=== PATIENT | male | born 1965 | race Caucasian/White ===

== ENCOUNTER 2020-07-02 15:36 | Emergency (ER) | payer BC, SELFPAY ==
[2020-07-02 15:44] VITALS: BP 140/102; PULSE 106; RESP 14; TEMP 36.8; O2SAT 97; BMI 36.2
--- NOTE | 2020-07-02 15:56 | XRR_ITS ---
PROCEDURE INFORMATION: Exam: XR Chest, 1 View Exam date and time: 07/02/2020 3:58 PM Age: 54 years old Clinical indication: Other: Rapid heart rate; Additional info: Dyspnea/svt TECHNIQUE: Imaging protocol: XR of the chest Views: 1 view. COMPARISON: No relevant prior studies available. FINDINGS: Lungs: Unremarkable. No consolidation. Pleural spaces: Unremarkable. No pleural effusion. No pneumothorax. Heart/Mediastinum: Unremarkable. No cardiomegaly. Bones/joints: Unremarkable. XR/XR chest 1V portable [id number] IMPRESSION: No acute findings.
--- NOTE | 2020-07-02 15:58 | PC.NURSE ---
PT PRESENTS TO ED BY EMS FOR RAPID HEART RATE. PT DROVE HIMSELF TO EMS STATION, HAD CHEST PAIN. EMS DID EKG, WAS SVT. PT HAS NO HISTORY OF SVT. IV WAS OBTAINED AND 6MG ADENOSINE WAS GIVEN WITH NO CHANGE. 12 MG ADENOSINE, AND PT CONVERTED. PT ARRIVES ED WITH NO COMPLAINTS.
--- NOTE | 2020-07-02 15:59 | ED_ITS ---
HPI - Arrhythmia/Palpitations General: Chief Complaint: Arrhythmia/Palpitations Stated Complaint: CHEST PAIN Time Seen by Provider: 07/02/20 15:42 History of Present Illness: HPI narrative: Patient is a 54-year-old male who comes to the ER after an episode of chest tightness while he was driving. He went home and said the chest tightness continued and was having palpitations with it and called 911. EMS arrived and noted him to be in supraventricular tachycardia. They gave 6 and then 12 of adenosine. The 12 mg dose converted him back to sinus tachycardia rate in the 90s. His symptoms resolved after that. In the ER he feels normal and his rate is in the 90s on telemetry. He has COPD and no other medical problems. Former smoker he quit years ago MD complaint: rapid heart beat and palpitations Duration: constant and now resolved Severity: severe Context: occurred during rest Associated symptoms: Reports no associated symptoms; Deny anxiety Review of Systems General: Reports: 10 or more systems reviewed and unremarkable except in HPI and below Narrative: Review of systems negative in the ER. Const: Denies: fatigue Eyes: Denies: change in vision, blurry vision or eye redness ENMT: Denies: throat pain, swelling of lips/tongue, ear or mastoid pain or nasal congestion Card: Denies: chest pain, palpitations, irregular heart rhythm, edema, dyspnea on exertion or orthopnea Resp: Denies: dyspnea, productive cough or non-productive cough GI: Denies: abdominal pain, diarrhea or GI cramping : Denies: flank pain, urinary frequency or urinary urgency Musc: Denies: neck pain, back pain, extremity pain, joint pain, joint redness, limited range of motion or muscle weakness Skin/Breast: Denies: rash, pruritus, erythema, skin pain or skin tenderness Neuro: Denies: headache(s), numbness in extremities, weakness in extremities, sensory changes, difficulty walking, dizziness, confusion or Slurred speech present Psych: Denies: anxiety or depression Endo: Denies: polyuria All/Imm: Denies: urticaria, throat swelling or tongue swelling Physical Exam Const: COMMON NORMALS: no acute distress, average body habitus, patient oriented x3, no limitations, healthy appearing, alert and well nourished GENERAL APPEARANCE: cooperative, comfortable, well kempt and well developed ORIENTATION/CONSCIOUSNESS: Yes awake, Yes oriented to person, Yes oriented to place and Yes oriented to time HENMT: COMMON NORMALS: normocephalic, external ears normal and Normal external nose present HEAD & SCALP: normal to inspection and normocephalic NOSE: Normal external nose present EXTERNAL EAR: Yes external ears normal MOUTH: Normal oral and palatal mucosa present THROAT: posterior oropharynx normal Eye: COMMON NORMALS: Equal, round and reactive pupils present and EOMs intact bilaterally GENERAL EYE: appearance normal, both eyes and all related structures PUPIL: Yes Equal, round and reactive pupils present Neck/C-Spine: COMMON NORMALS: full ROM, no lymphadenopathy, no meningeal signs and no JVD GENERAL: Yes normal visual inspection Lymph: LYMPHATIC: no lymphadenopathy noted Chest: COMMONS NORMALS: normal inspection of the chest and normal palpation of entire chest wall Resp: COMMON NORMALS: normal respiratory effort, No retractions, No use of accessory muscles, clear to auscultation bilaterally and percussion normal EFFORT & INSPECTION: Yes able to speak in complete sentences AUSCULTATION: clear to auscultation bilaterally PERCUSSION: percussion normal Cardio: COMMON NORMALS: no JVD, regular rate, regular rhythm, S1 normal heart sound present, S2 normal heart sound present and Peripheral pulses 2+ throughout RATE: regular rate RHYTHM: regular rhythm HEART SOUNDS: S1 normal heart sound present and S2 normal heart sound present PERIPHERAL PULSES: Peripheral pulses 2+ throughout GI: COMMON NORMALS: Normal to inspection, nondistended, normoactive bowel sounds present, Soft to palpation, non-tender and no masses INSPECTION: Yes normal to inspection PALPATION: Yes Soft to palpation : COMMON NORMALS: Yes no CVA tenderness BLADDER/KIDNEY EXAM: Yes no CVA tenderness Back/Pelvis: COMMON NORMALS: no CVA tenderness, thoracic and lumbar spine normal to inspection, no thoracic nor lumbar tenderness and thoraco-lumbar ROM normal Extremity: COMMON NORMALS: normal to inspection, full ROM, capillary refill normal, no joint enlargement and no pedal edema GENERAL: Yes normal exam except as noted Neuro: COMMON NORMALS: patient oriented x3, CN's II-XII intact bilaterally, moves all extremities, no focal motor deficits, no sensory deficits noted and gait normal SENSORIUM/ORIENTATION: Yes alert, Yes oriented to person, Yes oriented to place and Yes oriented to time MENINGEAL SIGNS: Yes no meningeal signs Psych: COMMON NORMALS: mental status grossly normal, Normal thought process present, cooperative, normal affect and speech normal APPEARANCE: Yes well kempt ATTITUDE: Yes calm SPEECH: Yes normal speech THOUGHT PROCESS: Normal thought process present Skin: COMMON NORMALS: no rashes or lesions noted GENERAL SKIN EXAM: no rashes or lesions noted Course Vital Signs: Vital signs: Vital Signs Temperature 98.2 F 07/02/20 15:44 Pulse Rate 85 07/02/20 20:25 Respiratory Rate 21 H 07/02/20 20:25 Blood Pressure 130/99 07/02/20 20:25 Pulse Oximetry 96 07/02/20 20:25 MDM - Arrhythmia/Palpitations MDM Narrative: Medical decision making narrative: The patient had a single episode of supraventricular tachycardia relieved by 12 mg of adenosine in the EMS. He has been stable in the ER and had 2 - troponins and normal sinus tachycardia in the ED. Pressure normal. Discussed with Dr. Olsen who recommended metoprolol 12.5 succinate daily and follow-up in her clinic within 1 to 2 weeks. Instructed the patient to call 911 if symptoms return. 07/03/20 at approximately 1 PM: I discussed with him on the phone he continues to be asymptomatic. His troponin was slightly elevated from his initial however with him being asymptomatic it is okay with him to follow-up with primary care tomorrow doctor tomorrow. He says he will follow-up with the doctor tomorrow on our phone conversation. He is asymptomatic and knows to call 911 if he has any return of symptoms. Lab Data: Labs: Lab Results 07/02/20 07/02/20 07/02/20 Range/Units 16:25 16:25 16:25 WBC 5.6 (4.0-10.0) 10^3/ uL RBC 4.85 (4.1-5.3) 10^6/u L Hgb 15.4 (11.7-16.6) g/dL Hct 43.0 (42.0-52.0) % MCV 88.7 (80-94) fL MCH 31.8 (28.0-34.0) pg MCHC 35.8 (30.0-36.0) g/dL RDW 11.9 L (12.1-15.1) % Plt Count 203 (130-400) 10^3/c mm MPV 10.4 (7.4-10.4) fL Neut % (Auto) 57.9 % Lymph % (Auto) 32.1 % Robertson % (Auto) 5.7 % Eos % (Auto) 3.4 % Baso % (Auto) 0.5 % Neut # (Auto) 3.25 (1.8-7.7) 10^3/u L Lymph # (Auto) 1.8 (0.8-4.8) 10^3/u L Robertson # (Auto) 0.3 (0.2-0.9) 10^3/u L Eos # (Auto) 0.2 (0.0-0.8) 10^3/u L Baso # (Auto) 0.0 (0.0-0.1) 10^3/u L Nucleated RBC % (a uto) 0 % Nucleated RBCs # 0.0 /100WBC D-Dimer (0-0.59) ug/mIFE U Sodium 137 (136-145) mmol/L Potassium 3.9 (3.5-5.1) mmol/L Chloride 104 (98-107) mmol/L Carbon Dioxide 23 (22-29) mmol/L Anion Gap 13.9 (5-19) BUN 16 (6-20) mg/dL Creatinine 0.7 (0.7-1.2) mg/dL GFR Calculation 118.0 (90-130) mL/min Glucose 98 (65-115) mg/dL Calculated Osmolal ity 285 (285-295) mOsm/k g Calcium 9.7 (8.5-10.5) mg/dL Total Bilirubin 0.5 (0.15-1.2) mg/dL AST 18 (0-40) U/L ALT 28 (0-41) U/L Alkaline Phosphata se 66 (40-130) IU/L Troponin T Baselin e 18 H (0-15) ng/L Troponin T 120 Min algaaciq (0-15) ng/L Delta Troponin T (0-10) ABS# NT-Pro-B Natriuret Pep 58 (0-125) pg/mL Total Protein 6.7 (6.6-8.7) g/dL Albumin 4.4 (3.5-5.2) g/dL Globulin 2.3 (1.3-4.6) g/dL Urine Color (Yellow) Urine Appearance (CLEAR) Urine pH (5-7) Ur Specific Gravit y (1.005-1.030) Urine Protein (Negative) Urine Glucose (UA) (Normal) Urine Ketones (Negative) Urine Blood (Negative) Urine Nitrate (Negative) Urine Bilirubin (Negative) Urine Urobilinogen (Negative) mg/dL Ur Leukocyte Laura ase (Negative) 07/02/20 07/02/20 07/02/20 Range/Units 16:25 16:25 18:30 WBC (4.0-10.0) 10^3/ uL RBC (4.1-5.3) 10^6/u L Hgb (11.7-16.6) g/dL Hct (42.0-52.0) % MCV (80-94) fL MCH (28.0-34.0) pg MCHC (30.0-36.0) g/dL RDW (12.1-15.1) % Plt Count (130-400) 10^3/c mm MPV (7.4-10.4) fL Neut % (Auto) % Lymph % (Auto) % Robertson % (Auto) % Eos % (Auto) % Baso % (Auto) % Neut # (Auto) (1.8-7.7) 10^3/u L Lymph # (Auto) (0.8-4.8) 10^3/u L Robertson # (Auto) (0.2-0.9) 10^3/u L Eos # (Auto) (0.0-0.8) 10^3/u L Baso # (Auto) (0.0-0.1) 10^3/u L Nucleated RBC % (a uto) % Nucleated RBCs # /100WBC D-Dimer 0.31 (0-0.59) ug/mIFE U Sodium (136-145) mmol/L Potassium (3.5-5.1) mmol/L Chloride (98-107) mmol/L Carbon Dioxide (22-29) mmol/L Anion Gap (5-19) BUN (6-20) mg/dL Creatinine (0.7-1.2) mg/dL GFR Calculation (90-130) mL/min Glucose (65-115) mg/dL Calculated Osmolal ity (285-295) mOsm/k g Calcium (8.5-10.5) mg/dL Total Bilirubin (0.15-1.2) mg/dL AST (0-40) U/L ALT (0-41) U/L Alkaline Phosphata se (40-130) IU/L Troponin T Baselin e (0-15) ng/L Troponin T 120 Min algaaciq 39.12 H (0-15) ng/L Delta Troponin T 21.12 H* (0-10) ABS# NT-Pro-B Natriuret Pep (0-125) pg/mL Total Protein (6.6-8.7) g/dL Albumin (3.5-5.2) g/dL Globulin (1.3-4.6) g/dL Urine Color Straw (Yellow) Urine Appearance Clear (CLEAR) Urine pH 6 (5-7) Ur Specific Gravit y 1.005 (1.005-1.030) Urine Protein Neg (Negative) Urine Glucose (UA) Norm (Normal) Urine Ketones Negative (Negative) Urine Blood Neg (Negative) Urine Nitrate Negative (Negative) Urine Bilirubin Neg (Negative) Urine Urobilinogen Norm (Negative) mg/dL Ur Leukocyte Laura ase Negative (Negative) Discharge Plan Discharge Patient Disposition: Home Clinical Impression: Supraventricular tachycardia Condition: Stable Prescriptions: New metoprolol succinate 25 mg tablet extended release 24 hr 12.5 mg PO DAILY Qty: 30 RF: 0 No Action sildenafil (pulm.hypertension) 20 mg tablet 20 mg PO DAILY PRN (Reason: Sexual Activity) RF: 0 Discharge Orders: Discharge ED (Routine); Ordered 07/02/20 Ordered By: Joe Barlow Referrals: Sky Go [Primary Care Provider] - Discharge Diet: Advance as tolerated Discharge Activity: Resume usual activity Patient Instructions: Supraventricular Tachycardia (ED), Opioid Safety Activity Restrictions/Additional Instructions: You have had an episode of supraventricular tachycardia. I have discussed with Dr. Olsen who recommends starting you on metoprolol and following up in the clinic within 1 to 2 weeks. I have placed a case management referral to help you get this appointment and they should be calling you Saturday. Please return to the ER if your symptoms of chest pain and palpitations return. Coding Level of Care Code ED Bark Press Operator for Vi Fwd Exam Comprehensive
[2020-07-02 16:36] LABS: Basophils % 0.5 %; Eosinophils # 0.2 10^3/uL (0.0-0.8); Eosinophils % 3.4 %; Hemoglobin 15.4 g/dL (11.7-16.6); Lymphocytes # 1.8 10^3/uL (0.8-4.8); Lymphocytes % 32.1 %; Mean Corpuscular HGB Conc 35.8 g/dL (30.0-36.0); Mean Corpuscular Hemoglobin 31.8 pg (28.0-34.0); Mean Corpuscular Volume 88.7 fL (80-94); Mean Platelet Volume 10.4 fL (7.4-10.4); Monocytes # 0.3 10^3/uL (0.2-0.9); Monocytes % 5.7 %; Neutrophils # 3.25 10^3/uL (1.8-7.7); Neutrophils % 57.9 %; Nucleated Red Blood Cells % 0 %; Platelet Count 203 10^3/cmm (130-400); Red Blood Count 4.85 10^6/uL (4.1-5.3); Red Cell Distribution Width 11.9 % (12.1-15.1); White Blood Count 5.6 10^3/uL (4.0-10.0)
[2020-07-02 16:51] LABS: Add Urine Microscopic? NO
[2020-07-02 16:57] LABS: D Dimer 0.31 ug/mIFEU (0-0.59)
[2020-07-02 17:02] LABS: Bilirubin Urine Neg (Negative); Blood Urine Neg (Negative); Glucose Urine UA Norm (Normal); Ketones Urine Negative (Negative); Leukocyte Esterase Urine Negative (Negative); Nitrate Urine Negative (Negative); Protein Urine Neg (Negative); Specific Gravity, Urine 1.005 (1.005-1.030); Urine Appearance Clear (CLEAR); Urine Color Straw (Yellow); Urobilinogen Urine Norm (Negative); pH Urine 6 (5-7)
[2020-07-02 17:07] LABS: Troponin(5th) Baseline 18 ng/L (0-15)
[2020-07-02 17:12] LABS: Alanine Aminotransferase 28 U/L (0-41); Albumin Level 4.4 g/dL (3.5-5.2); Alkaline Phosphatase 66 IU/L (40-130); Anion Gap 13.9 (5-19); Aspartate Amino Transferase 18 U/L (0-40); Blood Urea Nitrogen 16 mg/dL (6-20); Calcium 9.7 mg/dL (8.5-10.5); Carbon Dioxide 23 mmol/L (22-29); Chloride 104 mmol/L (98-107); Globulin 2.3 g/dL (1.3-4.6); Glucose 98 mg/dL (65-115); NT Pro B Type Natriuretic Pept 58 pg/mL (0-125); Osmolality Calculated 285 mOsm/kg (285-295); Potassium 3.9 mmol/L (3.5-5.1); Sodium 137 mmol/L (136-145); Total Bilirubin 0.5 mg/dL (0.15-1.2); Total Protein 6.7 g/dL (6.6-8.7)
[2020-07-02 17:44] VITALS: BP 98/59; PULSE 90; RESP 20; O2SAT 100
--- NOTE | 2020-07-02 17:58 | ECG_ITS ---
[facility] Test Date: 2020-07-02 Pat Name: Aaron Reyes Department: Room: Gender: Male School Secretary: : 1965 Requested By: Joe Barlow Order Number: [id number] Brooke MD: Cora Olsen M.D. Measurements Intervals [place] Rate: 93 P: 5 PA: 156 QRS: 14 QRSD: 97 T: -5 QT: 351 QTc: 437 Interpretive Statements SINUS RHYTHM NONSPECIFIC T-WAVE ABNORMALITY Compared to ECG 07/02/2020 15:39:19 T-wave abnormality now present Sinus tachycardia no longer present Incomplete right bundle-branch block no longer present Electronically Signed On 07-02-2020 19:46:56 STRETCHING MACHINE TENDER FRAME by Cora Olsen M.D. [id number]
[2020-07-02 18:39] VITALS: BP 100/60; PULSE 89; RESP 20; O2SAT 100
[2020-07-02 18:58] VITALS: BP 140/101; PULSE 95; RESP 22; O2SAT 94
[2020-07-02 19:09] VITALS: BP 131/100; PULSE 91; RESP 18; O2SAT 97
[2020-07-02 19:10] LABS: Troponin 5 2HR 39.12 ng/L (0-15)
[2020-07-02] MEDS: metoprolol succinate ER (24 HR) 25 mg Tablet 12.5 MG PO (19:12)
[2020-07-02 19:19] LABS: Troponin 5 2HR Delta 21.12 ABS# (0-10)
[2020-07-02 20:25] VITALS: BP 130/99; PULSE 85; RESP 21; O2SAT 96
--- NOTE | 2020-07-02 21:58 | ECG_ITS ---
[facility] Test Date: 2020-07-02 Pat Name: Aaron Reyes Department: Room: Gender: Male Stringing Machine Operator: : 1965 Requested By: Joe Barlow Order Number: [id number] Cox MD: Cora Olsen M.D. Measurements Intervals [place] Rate: 108 P: 0 WI: 128 QRS: 89 QRSD: 107 T: -7 QT: 336 QTc: 452 Interpretive Statements SINUS TACHYCARDIA INCOMPLETE RIGHT BUNDLE BRANCH BLOCK [90+ ms QRS DURATION, TERMINAL R IN V1/V2, 40+ ms S IN I/aVL/V4/V5/V6] ABNORMAL QRS-T ANGLE [QRS-T AXIS DIFFERENCE > 60] No previous ECG available for comparison Electronically Signed On 07-02-2020 19:47:41 CONE WORKER by Cora Olsen M.D. [id number]
--- NOTE | 2020-07-04 10:18 | DCPLANNER ---
pig farm manager had message to schedule a follow up appointment for patient with [facility]. pig farm manager called [facility], spoke with Charissa, gave clinic patients information. A follow up appointment was scheduled for Saturday, July 18, 2020 at 9:[address] Olsen. pig farm manager called patient and gave patient the appointment information.
--- NOTE | 2020-07-28 15:09 | DCPLANNER ---
Patient had a follow up appointment scheduled for 07.18.20 with [facility] - patient did attend appointment.
== END 2020-07-02 20:26 | disposition home or self-care (01) ==
PROVIDERS: Emergency Provider Family Medicine; PCP Physician Assistant Medical
DX: I47.1 Supraventricular tachycardia (principal)
CPT/HCPCS: 71045; 80053; 81003; 83880; 84484; 85025; 85378; 93005; 99284